=== PATIENT | female | born 1965 | race Caucasian/White ===

== ENCOUNTER 2023-04-13 11:22 | Day surgery (SDC) | payer BC ==
[2023-04-12 09:25] VITALS: BMI 21.9
[~2023-04-13 11:22] MED LIST: Bupivacaine PF 0.5% 30 ML VIAL ONE; CEFAZOLIN 2 GM VIAL ONE
[2023-04-13] MEDS ORDERED: Acetaminophen 500 MG TAB ONE (13:32)
[2023-04-13] MEDS ORDERED: Lidocaine 2% 20 ml MDV ONE (13:35)
[2023-04-13] MEDS ORDERED: Bupivacaine PF 0.5% 30 ML VIAL ONE (13:35)
[2023-04-13] MEDS ORDERED: CEFAZOLIN 2 GM VIAL ONE (13:36)
[2023-04-13] MEDS ORDERED: PROPOFOL 20 ML ONE (13:54)
[2023-04-13] MEDS ORDERED: Lidocaine 1% PF 5 ML VIAL ONE (13:55)
[2023-04-13] MEDS ORDERED: PHENYLEPHRINE-NS 100 MCG/ML 10 ML SYRINGE ONE (14:57)
== END 2023-04-13 16:10 | disposition home or self-care (01) ==
LOC: CSHSDC 11:22
PROVIDERS: ATTEND Podiatrist Foot & Ankle Surgery
PROC: 0QSP04Z Reposition Left Metatarsal with Internal Fixation Device, Open Approach (ICD-10-PCS; principal; 2023-04-13)
PROC: 0LNW0ZZ Release Left Foot Tendon, Open Approach (ICD-10-PCS; principal; 2023-04-13)
PROC: 0QSR04Z Reposition Left Toe Phalanx with Internal Fixation Device, Open Approach (ICD-10-PCS; principal; 2023-04-13)
DX: M20.12 Hallux valgus (acquired), left foot (principal); M20.42 Other hammer toe(s) (acquired), left foot; I10 Essential (primary) hypertension; Z88.2 Allergy status to sulfonamides; Z91.040 Latex allergy status
CPT/HCPCS: C1769; J2704; S0020